=== PATIENT | male | born 1970 | race African-American/Black ===

== ENCOUNTER 2018-04-12 20:38 | Emergency (ER) | payer OTHER ==
[~2018-04-12] VITALS: Ht 177.8 cm; Wt 109.3 kg
[2018-04-12 20:48] VITALS: BP 143/86
== END 2018-04-12 23:57 | disposition home or self-care (01) ==
LOC: ER 20:38
DX: I10 Essential (primary) hypertension (principal); Z76.0 Encounter for issue of repeat prescription